=== PATIENT | male | born 1970 | race Caucasian/White ===

== ENCOUNTER 2025-08-16 09:18 | Observation (INO) | payer BC, SELFPAY ==
[2025-08-16 09:26] VITALS: BP 150/100; PULSE 67; TEMP 37.3; O2SAT 100; BMI 36.6
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
--- OUTSIDE RECORDS SUMMARY | 2025-08-16 10:00 | XMS_ITS | Clinical Summary ---
Demographics Address [address] [facility] [address] [place] [address] Home Phone Mobile Phone Preferred Language ENG Marital Status Unknown Jain Affiliation Unknown Race Other Race Ethnic Group Unknown Author Organization [facility] Address [address] [place] [address] Care Team Providers Care Boom Supervisor Name Role Phone Unavailable Primary Care Provider Unavailabl e Social History Tobacco UseTypesPacks/DayYears UsedDateSmoking Tobacco: Never AssessedSex and Gender InformationValueDate RecordedSex Assigned at BirthNot on fileLegal Sex Male04/15/2025 1:26 PM EDTGender IdentityNot on fileSexual OrientationNot on file Plan of Treatment DateTypeDepartmentCare Team (Latest Contact Info)Fprqvtfvmlu90/05/2025 12:00 PM ESTResults Only [facility] [place] [facility] [address] [phone] Dx: anomalous RCA09/19/2025 12:30 PM ESTAppointment Radiology [address] [place] [address] Dx: anomalous RCA09/19/2025 1:00 PM ESTProcedure Cardiology [address] [place] [phone] Dx: anomalous RCA09/19/2025 1:30 PM ESTOffice Visit Cardiology [address] [place] [address] Dx: anomalous RCA09/19/2025 3:00 PM ESTOffice Visit Cardiology [address] [place] [phone] Ariane Ortiz MD [address] [place] [address] Dx: anomalous RCAHealth MaintenanceDue DateLast DoneCommentsAnxiety Screening 1988Depression Qstfdvozn77/31/1988HIV Fjovpdoqq30/31/1988Hepatitis C Uykcmeosb57/31/1988DTaP,Tdap,Td Vaccine (1 - Tdap)1989Hepatitis B Vaccine (1 of 3 - 19+ 3-dose series)1989Lipid Wcivlglln77/31/2005CT Colonography 2015Cologuard (FIT-DNA)10/15/20151416Hmxilgywklg88/31/2015Colorectal Cancer Uigjmzzdt69/31/2015Diabetes Lrxrdwnkg37/31/2015Fecal Occult Blood2015 Nwkxxrtrawanl11/31/2015Pneumococcal Vaccine: 50+ (1 of 1 - PCV)2020 Shingrix Vaccine (1 of 2)2020Covid-19 Vaccine (1 - 2024- season) 2025Influenza Vaccine (#1)2025 Insurance * Guarantor: Gerardo SantillanAccount TypeRelation to PatientDate of BirthPhone Billing AddressPersonal/AozxlfVdbx1970 [address] [facility] [address] [place] [address]
[2025-08-16 10:42] LABS: Hematocrit 49.6 % (42.0-54.0); Hemoglobin 15.6 g/dL (14.0-18.0); Immature Granulocytes Abs Auto 0.14 10^3/uL (0.00-0.03); Immature Granulocytes Pct Auto 1.0 % (0.0-0.5); Lymphocytes Absolute Auto 1.4 10^3/uL (1.2-3.8); Mean Corpuscular HGB Conc 31.5 g/dL (29.9-35.2); Mean Corpuscular Hemoglobin 28.7 pg (25.9-34.0); Mean Corpuscular Volume 91.3 fL (80.0-94.0); Platelet Count 211 10^3/uL (150-450); Red Blood Count 5.43 10^6/uL (4.70-6.10); White Blood Count 14.1 10^3/uL (4.0-11.0)
[2025-08-16 10:52] LABS: Anion Gap 9.8; Blood Urea Nitrogen 32.0 mg/dL (7.0-18.0); Calcium 8.9 mg/dL (8.5-10.1); Carbon Dioxide 28.7 mmol/L (21.0-32.0); Chloride 108 mmol/L (98-107); Estimated GFR (African America >60 (>=60 mL/min/1.73m^2); Estimated GFR (Non-African Ame >60 (>=60 mL/min/1.73m^2); Glucose 188 mg/dL (74-106); Potassium 3.5 mmol/L (3.5-5.1); Sodium 143 mmol/L (136-145)
[2025-08-16] MEDS: CEFAZOLIN SODIUM/DEXTROSE,ISO 2 GM/50 ML PIGGYBACK IV ×2 (11:06→21:26)
[2025-08-16] MEDS: 0.9 % SODIUM CHLORIDE 1,000 ML 999 ML IV (11:06)
[2025-08-16 11:10] LABS: Lactate/Lactic Acid 2.0 mmol/L (0.4-2.0)
[2025-08-16] MEDS: KETOROLAC TROMETHAMINE 30 MG/ML VIAL IVP ×2 (13:30→21:34)
[2025-08-16] MEDS: HYDROMORPHONE HCL 1 MG/ML CARTRIDGE IVP (13:30)
[2025-08-16 14:12] VITALS: BP 130/82; PULSE 85; TEMP 36.7; O2SAT 94; BMI 36.2
[2025-08-16 16:00] VITALS: BP 123/82; PULSE 96; TEMP 37; O2SAT 94
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
[2025-08-16] MEDS: AMLODIPINE BESYLATE 5 MG TABLET PO (17:32)
[2025-08-16] MEDS: AMIODARONE HCL 200 MG TABLET PO (17:33)
[2025-08-16 20:00] VITALS: BP 126/87; PULSE 83; TEMP 36.8; O2SAT 92
[2025-08-16] MEDS: L. ACIDOPHILUS/L.BULGARICUS 1 PACKET GRAN.PACK PO (21:32)
[2025-08-16] MEDS: POTASSIUM BICARBONATE/CIT 25 MEQ TABLET EFF PO (21:32)
[2025-08-17 04:00] VITALS: BP 120/83; PULSE 76; TEMP 36.7; O2SAT 94
[2025-08-17] MEDS: HYDROMORPHONE HCL 0.5 MG/0.5 ML SYRINGE IV (04:04)
[2025-08-17] MEDS: CEFAZOLIN SODIUM/DEXTROSE,ISO 2 GM/50 ML PIGGYBACK IV ×2 (04:15→12:20)
[2025-08-17 06:56] LABS: Hematocrit 45.9 % (42.0-54.0); Hemoglobin 14.6 g/dL (14.0-18.0); Immature Granulocytes Abs Auto 0.11 10^3/uL (0.00-0.03); Immature Granulocytes Pct Auto 1.2 % (0.0-0.5); Lymphocytes Absolute Auto 1.4 10^3/uL (1.2-3.8); Mean Corpuscular HGB Conc 31.8 g/dL (29.9-35.2); Mean Corpuscular Hemoglobin 29.3 pg (25.9-34.0); Mean Corpuscular Volume 92.0 fL (80.0-94.0); Platelet Count 195 10^3/uL (150-450); Red Blood Count 4.99 10^6/uL (4.70-6.10); White Blood Count 9.4 10^3/uL (4.0-11.0)
[2025-08-17 07:05] LABS: Anion Gap 12.5; Blood Urea Nitrogen 30.0 mg/dL (7.0-18.0); Calcium 9.1 mg/dL (8.5-10.1); Carbon Dioxide 27.1 mmol/L (21.0-32.0); Chloride 107 mmol/L (98-107); Estimated GFR (African America >60 (>=60 mL/min/1.73m^2); Estimated GFR (Non-African Ame >60 (>=60 mL/min/1.73m^2); Glucose 139 mg/dL (74-106); Potassium 4.6 mmol/L (3.5-5.1); Sodium 142 mmol/L (136-145)
[2025-08-17 07:37] VITALS: BP 148/83; PULSE 85; TEMP 36.8; O2SAT 96
[2025-08-17] MEDS: L. ACIDOPHILUS/L.BULGARICUS 1 PACKET GRAN.PACK PO (08:59)
[2025-08-17] MEDS: AMIODARONE HCL 200 MG TABLET PO (09:00)
[2025-08-17] MEDS: POTASSIUM BICARBONATE/CIT 25 MEQ TABLET EFF PO (09:00)
[2025-08-17] MEDS: AMLODIPINE BESYLATE 5 MG TABLET PO (09:00)
[2025-08-17] MEDS: METOPROLOL SUCCINATE 25 MG TAB.ER.24H 50 MG PO (09:00)
[2025-08-17] MEDS: ATORVASTATIN CALCIUM 40 MG TABLET PO (09:00)
[2025-08-17] MEDS: HYDROCHLOROTHIAZIDE 25 MG TABLET PO (09:00)
[2025-08-17 11:08] VITALS: BP 138/80; PULSE 81; TEMP 36.7; O2SAT 95
--- NOTE | 2025-08-17 14:21 | PM.DS1 ---
DS: Providers Provider Date of admission: 08/16/25 13:50 Primary care physician: Non-Staff Physician, DS: Diagnosis Discharge Diagnosis (1) Cellulitis of left thigh: Assessment and plan: Severe, rapidly progressing, cellulitis of the soft tissue and skin on the inner aspect of the left thigh. DS: Summary Hospital Course Hospital Course: This is a 54-year-old man who came to emergency room at the [facility] with cellulitis on the upper aspect on the inner aspect of his thigh and close to the gluteal region. 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 But he does have an area of extra adipose tissue on the inner aspect of his thigh on the left very close to the inguinal crease and gluteal cleft and that is right where the cellulitis sat on. The patient reported having shaking chills and rigors when he was in the emergency room. He was given IV Ancef. He was kept in the hospital for about 36 hours of observation. He had about 5 doses of IV Ancef 2 g given at roughly every 8 hours. With this he had about a 50% improvement in the pain and redness and warmth of that cellulitis. Fortunately, the cellulitis was not spreading at all as it is only just about a centimeter or 2 from his perineal area and gluteal area, which would be an extremely life-threatening infection if it spread to those areas. With this saw improvement the patient was requesting to be able to go home. I am prescribing him 10 days of Keflex 500 mg 4 times daily. A secondary issue is that he has an acquired absence of both testes. In the past used to use injected testosterone that he got from [facility] pharmacy in [place]. But he says that his urologist asked him to moved to a topically applied gel foam. He says that his insurance company paid for 1 unit of that foam and that when it ran out his insurance company refused to authorize any more doses. In this individual I think that at least some testosterone replacement would be reasonable for the next few decades since he has not had any testes since he was a teenager. I was unable to prescribe him a one-time starter prescription for testosterone because the controlled substance electronic prescribing component of the EHR here was not working for me. Hopefully the patient can follow-up with providers in urology office or with his PCP for this problem in the long run. Status at Discharge Functional status at discharge: independent ambulation Overall status at discharge: patient is progressing back to baseline Time Spent with Patient Time attestation: Total time spent providing and/or coordinating discharge services: Time spent: less than 30 minutes Specific discharge activities: 22 minutes of time spent on the discharge. Exam Narrative Exam Narrative: General: Awake. Alert. Oriented x 3. Skin all of the rest of his skin is warm and dry and well-perfused. No diaphoresis. No pallor. Left inner thigh: About 25% improvement in the swelling and redness. About 50% improvement in the warmth. Area is not spreading or streaking. Area has declined a little tiny bit. No areas of drainage. No palpable areas of purulence. No evidence that there is a deeper abscess underneath this tissue. This does state about 1 inch away from his inguinal crease in his perineum and fortunately stays away from the gluteus muscle so hopefully this cellulitis will not progress to extremely sensitive tissues which would be therefore life-threatening. GI: Soft abdomen which is nontender and nonacute. Constitutional Vital Signs, click to edit/add: Last Vital Signs Temp 98.0 F 08/17/25 11:08 Pulse 81 08/17/25 11:08 Resp 18 08/17/25 11:08 BP 138/80 08/17/25 11:08 Pulse Ox 95 08/17/25 11:08 O2 Del Method Room Air 08/17/25 11:08 DS: Data Data Completed and Pending Labs on day of discharge: Labs from last 24 hours 08/17/25 08/17/25 11:13 06:45 WBC 9.4 RBC 4.99 Hgb 14.6 Hct 45.9 MCV 92.0 MCH 29.3 MCHC 31.8 RDW 15.2 H Plt Count 195 MPV 8.9 L Neut % (Auto) 75.6 H Lymph % (Auto) 14.6 L Long % (Auto) 7.7 Eos % (Auto) 0.7 L Baso % (Auto) 0.2 Neut # (Auto) 7.1 H Lymph # (Auto) 1.4 Long # (Auto) 0.7 Eos # (Auto) 0.1 Baso # (Auto) 0.0 Abs Immat Gran (auto) 0.11 H Imm/Tot Granulo (auto) 1.2 H Sodium 142 Potassium 4.6 Chloride 107 Carbon Dioxide 27.1 Anion Gap 12.5 BUN 30.0 H Creatinine 1.08 Est GFR ( Amer) >60 Est GFR (Non-Af Amer) >60 BUN/Creatinine Ratio 27.8 Glucose 139 H Estimat Average Glucose 143 Hemoglobin A1c 6.6 H Calcium 9.1 POC Glucose 155 H 124 H Discharge Plan Discharge Disposition: Home, Self-Care Discharge Medications: New cephalexin 500 mg capsule 500 mg PO QID 10 Days Qty: 40 0RF testosterone cypionate [Depo-Testosterone] 100 mg/mL oil 50 mg subcut Q14D Qty: 10 0RF Continued metoprolol succinate 25 mg tablet extended release 24 hr 50 mg PO DAILY Effer-K 25 mEq tablet, effervescent 25 meq PO BID rosuvastatin 10 mg tablet 10 mg PO DAILY hydrochlorothiazide 25 mg tablet 25 mg PO DAILY amiodarone 200 mg tablet 200 mg PO Q24H Ozempic 1 mg/dose (4 mg/3 mL) pen injector 1 mg subcut QWEEK amlodipine 5 mg tablet 5 mg PO .QD metoprolol succinate 50 mg tablet extended release 24 hr 50 mg PO .QD Activity: increase activity as tolerated and resume usual activities as tolerated Diet: advance to your usual diet Print Language: Egyptian Patient Instructions: Cephalexin (By mouth) (Bio-Cef, Keflex), Testosterone (By injection) (Aveed, Delatestryl, Depo-Testosterone,..., Cellulitis (ED) Forms: Portal Instructions Discharge Date/Time: 08/17/25 17:06
[2025-08-17 15:43] VITALS: BP 141/86; PULSE 77; TEMP 36.7; O2SAT 94
[2025-08-17] MEDS: CEFAZOLIN SODIUM 2 GM/50 ML D5W PREMIX IV (16:19)
--- NOTE | 2025-08-18 14:39 | CM.NOTE ---
I attempted to do a discharge follow up call but the phone number given to us states it is no longer a working number. I reached out to Dr Patiño's office for a different contact number and was given [phone] but no one answered. I will attempt to call the patient again tomorrow.
--- NOTE | 2025-08-18 15:09 | CM.DCFOLLOWU ---
Person spoke with:Gerardo How are you feeling? Better How is your pain? Better Did you understand your discharge instructions? Yes Do you have any questions about your discharge instructions? No Were you given any prescriptions at discharge? Yes Were you able to get your prescriptions filled? Yes Do you understand how to take your medications as ordered? Yes Do you have any questions about your follow up appointment and do you plan to keep your follow up appointment? The patient was notified that he has an appt with Dr Patiño on 09/14 at 9:30 am Is there anything else that you would like to discuss? No Questions/Comments/Concerns/Other:
== END 2025-08-17 17:06 | disposition home or self-care (01) ==
LOC: ER 13:07 → MS 13:58
PROVIDERS: Admitting Provider Hospitalist; Emergency Provider Emergency Medicine; Visit Provider Hospitalist
DX: L03.116 Cellulitis of left lower limb (principal); E11.9 Type 2 diabetes mellitus without complications; Z79.85 Long-term (current) use of injectable non-insulin antidiabetic drugs; Z89.611 Acquired absence of right leg above knee; F17.290 Nicotine dependence, other tobacco product, uncomplicated; E78.5 Hyperlipidemia, unspecified; I10 Essential (primary) hypertension; M54.9 Dorsalgia, unspecified; G89.29 Other chronic pain; Z90.79 Acquired absence of other genital organ(s)
CPT/HCPCS: 36415; 80048; 82948; 83036; 83605; 85025; 87040; 93971; 96365; 96366; 96375; 96376; 99285; G0378; J0690; J1171; J1885; J2405